=== PATIENT | male | born 1960 | race Two or more races ===

== ENCOUNTER 2018-02-12 09:12 | Day surgery (SDC) | payer OTHER ==
[~2018-02-12] VITALS: Ht 182.9 cm; Wt 77.1 kg
[2018-02-12] MEDS ORDERED: PAX20 PO (11:27)
[2018-02-12] MEDS ORDERED: MONT10TA35 PO (11:27)
[2018-02-12] MEDS ORDERED: LANS15EC28 PO (11:27)
[2018-02-12] MEDS ORDERED: GABA300C PO (11:27)
[2018-02-12] MEDS ORDERED: BENA40TA PO (11:27)
[2018-02-12] MEDS ORDERED: LIDOCAINE 2% 100 MG/5 ML UJET TP ONE (11:59)
[2018-02-12] MEDS ORDERED: fentaNYL 0.05 MG/ML VIAL ONE (11:59)
[2018-02-12] MEDS ORDERED: MIDAZOLAM 2 MG/2 ML VIAL ONE (12:07)
[2018-02-12] MEDS ORDERED: MIDAZOLAM 2 MG/2 ML VIAL IVP ONE (14:00)
== END 2018-02-12 12:54 | disposition home or self-care (01) ==
LOC: MMU 09:12 → MOR 09:12
PROVIDERS: ATTEND Internal Medicine Gastroenterology
DX: Z12.11 Encounter for screening for malignant neoplasm of colon (principal); K64.4 Residual hemorrhoidal skin tags; K57.30 Diverticulosis of large intestine without perforation or abscess without bleeding; E11.9 Type 2 diabetes mellitus without complications; I10 Essential (primary) hypertension; J45.909 Unspecified asthma, uncomplicated; F32.9 Major depressive disorder, single episode, unspecified; J40 Bronchitis, not specified as acute or chronic; Z79.899 Other long term (current) drug therapy; Z79.84 Long term (current) use of oral hypoglycemic drugs
CPT/HCPCS: 45378; 82948; J2250; J3010